=== PATIENT | female | born 1965 | race Caucasian/White ===

== ENCOUNTER 2018-03-19 14:13 | Outpatient (CLI) | payer OTHER ==
[2018-03-19] MEDS ORDERED: MAGN250T8 PO (14:44)
[2018-03-19] MEDS ORDERED: FAMO-79 PO (14:44)
[2018-03-19] MEDS ORDERED: TRAZ50TA66 PO (14:44)
[2018-03-19] MEDS ORDERED: ATOR20TA PO (14:44)
[2018-03-19] MEDS ORDERED: BUPR200T2 PO (14:44)
[2018-03-19] MEDS ORDERED: MATURE MVT PO (14:44)
[2018-03-19] MEDS ORDERED: DOCU100T3 PO (14:44)
[2018-03-19] MEDS ORDERED: IRON PO (14:44)
== END 2018-03-19 23:59 | disposition home or self-care (01) ==
LOC: STAR 14:13
PROVIDERS: ATTEND Obstetrics & Gynecology Female Pelvic Medicine and Reconstructive Surgery
DX: Z02.9 Encounter for administrative examinations, unspecified (principal)

== ENCOUNTER 2018-03-23 10:10 | Day surgery (SDC) | payer OTHER ==
[~2018-03-23] VITALS: Ht 175.3 cm; Wt 76.8 kg
[~2018-03-23 10:10] MED LIST: ATOR20TA PO; BUPIVACAINE/PF 0.25% ONE; BUPR200T2 PO; DOCU100T3 PO; EPINEPHRINE 1 MG/ML, 1ML ONE; FAMO-79 PO; IRON PO; MAGN250T8 PO; MATURE MVT PO; NEOMY/POLYMYXIN B GU IRR. 1 ML ONE; TRAZ50TA66 PO
[2018-03-23] MEDS ORDERED: LACTATED RINGERS 1,000 ML IV SCH (10:41)
[2018-03-23 10:58] LABS: HCG UR SG 1.023 (1.003-1.030)
[2018-03-23 11:16] VITALS: BP 116/77
[2018-03-23] MEDS ORDERED: MIDAZOLAM 1 MG/ML, 2ML ONE (12:53)
[2018-03-23] MEDS ORDERED: FENTANYL PF 100 MCG/2ML ONE ×2 (12:53→15:58)
[2018-03-23] MEDS ORDERED: CEFAZOLIN 1,000 MG ONE (13:06)
[2018-03-23] MEDS ORDERED: DEXAMETHASONE 4 MG/ML, 1ML ONE ×2 (13:06)
[2018-03-23] MEDS ORDERED: PROPOFOL 10 MG/ML, 20ML ONE (13:06)
[2018-03-23] MEDS ORDERED: ROCURONIUM 10 MG/ML,10ML ONE (13:06)
[2018-03-23] MEDS ORDERED: ONDANSETRON 2MG/ML, 2ML ONE (13:06)
[2018-03-23] MEDS ORDERED: LABETALOL 5MG/ML, 20ML IV PRN (13:30)
[2018-03-23] MEDS ORDERED: METOCLOPRAMIDE 5 MG/ML, 2ML IV PRN (13:30)
[2018-03-23] MEDS ORDERED: LORazepam 2 MG/ML, 1ML IVPush PRN (13:30)
[2018-03-23] MEDS ORDERED: OXYcodone 5 MG/5 ML ORAL.SOL UDC PO PRN (13:30)
[2018-03-23] MEDS ORDERED: ACETAMINOPHEN 325 MG TABLET PO PRN (13:30)
[2018-03-23] MEDS ORDERED: MEPERIDINE/PF 25MG/0.5ML IVPush PRN (13:30)
[2018-03-23] MEDS ORDERED: OXYcodone 5 MG/5 ML ORAL.SOL UDC ONE (15:58)
[2018-03-23] MEDS ORDERED: ACETAMINOPHEN 650 MG/20.3 ML UDC ONE (15:58)
[2018-03-23] MEDS: FENTANYL PF 100 MCG/2ML IV PRN ×3 (15:59→16:15)
[2018-03-23] MEDS ORDERED: HYDROmorphone 2 MG/ML, 1ML ONE (16:22)
[2018-03-23] MEDS: HYDROmorphone 2 MG/ML, 1ML IVPush PRN ×3 (16:25→16:44)
== END 2018-03-23 18:30 | disposition home or self-care (01) ==
LOC: OUT 10:10
PROVIDERS: ATTEND Obstetrics & Gynecology Female Pelvic Medicine and Reconstructive Surgery
DX: D25.9 Leiomyoma of uterus, unspecified (principal); N92.1 Excessive and frequent menstruation with irregular cycle; N94.6 Dysmenorrhea, unspecified; N94.10 Unspecified dyspareunia; N81.89 Other female genital prolapse; N39.3 Stress incontinence (female) (male); N32.81 Overactive bladder; E78.5 Hyperlipidemia, unspecified; J45.909 Unspecified asthma, uncomplicated; D64.9 Anemia, unspecified; G43.909 Migraine, unspecified, not intractable, without status migrainosus; Z88.5 Allergy status to narcotic agent; Z98.890 Other specified postprocedural states; Z72.89 Other problems related to lifestyle
CPT/HCPCS: 57265; 57282; 57288; 58552; 81025; 88307; C1771; J0171; J0690; J1100; J1170; J2250; J2405; J2704; J3010; J3490; J7120

== ENCOUNTER → 2020-03-08 | Outpatient (CLI) | payer OTHER ==
[~2020-03-08] MED LIST changes: -BUPIVACAINE/PF 0.25% ONE; -EPINEPHRINE 1 MG/ML, 1ML ONE; -NEOMY/POLYMYXIN B GU IRR. 1 ML ONE
== END | disposition home or self-care (01) ==
LOC: CFH 09:45
PROVIDERS: ATTEND Internal Medicine
DX: Z12.31 Encounter for screening mammogram for malignant neoplasm of breast (principal)
CPT/HCPCS: 77063; 77067